=== PATIENT | female | born 1945 | race Caucasian/White ===

== ENCOUNTER → 2018-12-25 | Outpatient (CLI) | payer OTHER ==
[~2018-12-25] MED LIST: ACET325; Alendronate Sod10 MG PO; CARV3.125 PO; HYDACE5 PO; IBUP200; IBUP800 PO; LISI5 PO; OXYACE5T PO
== END | disposition home or self-care (01) ==
LOC: LAB 12:32 → LAB SHORT 12:32
DX: D22.62 Melanocytic nevi of left upper limb, including shoulder (principal)
CPT/HCPCS: 88305

== ENCOUNTER → 2019-01-06 | Outpatient (CLI) | payer OTHER | END | disposition home or self-care (01) | LOC: LAB SHORT 14:11 → PLD 14:11 | DX: D22.62 Melanocytic nevi of left upper limb, including shoulder (principal) | CPT/HCPCS: 88305 ==

== ENCOUNTER → 2021-07-28 | Outpatient (CLI) | payer OTHER | LOC: LAB SHORT 10:40 | DX: R82.998 Other abnormal findings in urine (principal) | CPT/HCPCS: 87086 ==

== ENCOUNTER → 2021-08-15 | Outpatient (CLI) | payer OTHER | END | disposition home or self-care (01) | LOC: LAB SHORT 15:08 → PLD 15:08 | DX: L57.0 Actinic keratosis (principal) | CPT/HCPCS: 88305 ==

== ENCOUNTER → 2021-10-24 | Outpatient (CLI) | payer OTHER | END | disposition home or self-care (01) | LOC: LAB 11:15 → LAB SHORT 11:15 | DX: R30.0 Dysuria (principal) | CPT/HCPCS: 87077; 87086; 87186 ==

== ENCOUNTER → 2022-05-17 | Outpatient (CLI) | payer OTHER | END | disposition home or self-care (01) | LOC: LAB SHORT 08:30 → LAB 08:30 | DX: R30.9 Painful micturition, unspecified (principal) | CPT/HCPCS: 87086 ==

== ENCOUNTER 2022-06-27 21:48 | Emergency (ER) | payer OTHER ==
[~2022-06-27] VITALS: Ht 172.7 cm; Wt 65.8 kg
[2022-06-27 22:14] LABS: BASOPHILS ABSOLUTE AUTO 0.01 K/mm3 (0.00-0.23); BASOPHILS PERCENT AUTO 0 % (0-2); EOSINOPHILS ABSOLUTE AUTO 0.05 K/mm3 (0.00-0.68); EOSINOPHILS PERCENT AUTO 1 % (0-6); Hematocrit 37.9 % (33.0-51.0); Hemoglobin 13.2 g/dL (11.5-16.0); IMMATURE GRAN ABSOLUTE AUTO 0.01 K/mm3 (0.00-0.10); IMMATURE GRAN PERCENT AUTO 0 % (0-1); LYMPHOCYTES ABSOLUTE AUTO 1.54 K/mm3 (0.84-5.20); LYMPHOCYTES PERCENT AUTO 26 % (21-46); MONOCYTES ABSOLUTE AUTO 0.58 K/mm3 (0.16-1.47); MONOCYTES PERCENT AUTO 10 % (4-13); Mean Corpuscular HGB 33.1 pg (26.0-34.0); Mean Corpuscular HGB Conc 34.8 g/dL (31.5-36.5); Mean Corpuscular Volume 95 fL (80-100); Mean Platelet Volume 10.1 fL (9.1-12.4); NEUTROPHILS ABSOLUTE AUTO 3.64 K/mm3 (1.96-9.15); NEUTROPHILS PERCENT AUTO 62 % (41-73); Platelet Count 284 K/mm3 (150-400); RDW Coefficient Variation 12.7 % (11.7-14.2); RDW Standard Deviation 44.2 fL (35.1-46.3); Red Blood Cell Count 3.99 M/mm3 (3.80-5.20); White Blood Cell Count 5.83 K/mm3 (4.00-11.30)
[2022-06-27 22:34] LABS: Albumin, Blood 3.7 g/dL (3.4-5.0); Albumin/Globulin Ratio 1.1 (0.8-1.8); Bilirubin, Total 0.3 mg/dL (0.1-1.0); Bun/Creatinine Ratio 28.6 (12.0-20.0); Calcium, Blood 9.1 mg/dL (8.5-10.1); Creatinine, Blood 0.77 mg/dL (0.40-1.00); Globulin, Blood 3.4 g/dL (2.2-4.0); Potassium, Blood 3.9 mmol/L (3.5-5.5); Total Protein, Blood 7.1 g/dL (6.4-8.2)
[2022-06-28] MEDS ORDERED: PRAV20 PO (01:42)
== END 2022-06-28 05:25 | disposition home or self-care (01) ==
LOC: ER 21:48
PROVIDERS: Emergency Medicine
DX: M79.602 Pain in left arm (principal); M25.511 Pain in right shoulder; Z79.899 Other long term (current) drug therapy; I10 Essential (primary) hypertension
CPT/HCPCS: 36415; 71046; 73562-RT; 80053; 84484; 85025; 96374; 99284-25; A9270; J1885

== ENCOUNTER → 2024-05-18 | Outpatient (CLI) | payer OTHER ==
[~2024-05-18] MED LIST changes: +PRAV20 PO
== END ==
LOC: LAB SHORT 17:16 → LAB 17:16
DX: N39.0 Urinary tract infection, site not specified (principal)
CPT/HCPCS: 87086

== ENCOUNTER → 2024-07-15 | Outpatient (CLI) | payer OTHER | END | disposition home or self-care (01) | LOC: LAB 10:51 → LAB SHORT 10:51 | DX: N39.0 Urinary tract infection, site not specified (principal); R31.9 Hematuria, unspecified | CPT/HCPCS: 87086 ==

== ENCOUNTER 2024-08-04 08:26 | Day surgery (SDC) | payer OTHER ==
[~2024-08-04] VITALS: Ht 170.2 cm; Wt 64.8 kg
[~2024-08-04 08:26] MED LIST changes: +Balanced Salt Epinephrine Irrigation Solution 500 mL IR SCH; +Diazepam 5 MG Tab PO PRN; +Diazepam 5 MG Tab PO SCH; +Lidocaine HCl/Pf 1% 5 ML VIAL XX SCH; +Moxifloxacin HCL 0.5 MG/0.1 ML 0.4MLSYR RIGHTEYE SCH; +Ondansetron 4 MG SoluTab MM PRN; +PHENYLEPHRINE\\TROPICAMIDE\\TETRACAINE OPHTHALMIC DILATING SOLN RIGHTEYE PRN; +Povidone-Iodine 450 DROP/30 ML Solution ONE; +Povidone-Iodine 450 DROP/30 ML Solution RIGHTEYE SCH; +Tetracaine HCl/Pf 0.5% Opth Soln 4 ml ONE
[2024-08-04] MEDS ORDERED: Diazepam 10 MG Tab ONE (08:52)
[2024-08-04] MEDS ORDERED: XARELTO20 M1 (09:06)
[2024-08-04] MEDS ORDERED: PROLIA60 MG/1 ML (09:07)
--- NOTE | 2024-08-04 09:19 | NUR ---
08/04/24 0919 Syed Chavez VALIUM 10 MG PO ADMINISTERED AT 0902. PT REPORTS ANXIETY LEVEL OF 4-5/10 PRE ADMINISTRATION OF VALIUM. TETRACAINE ADMINISTERED AT 0907, PLEDGET PLACED AT 0909.
[2024-08-04] MEDS ORDERED: Diazepam 2 MG Tab ONE (09:39)
--- NOTE | 2024-08-04 09:51 | NUR ---
08/04/24 0951 Yaneth Painter VITALS AT 0949 BP: 148/61 P: 56 O2: 96 10 LITERS OF BLOW BY OXYGEN.
[2024-08-04 10:06] VITALS: BP 129/62
== END 2024-08-04 10:17 | disposition home or self-care (01) ==
LOC: ORSCSDS 08:26
PROVIDERS: Student in an Organized Health Care Education/Training Program
PROC: 08RJ3JZ Replacement of Right Lens with Synthetic Substitute, Percutaneous Approach (ICD-10-PCS; principal; 2024-08-04 10:00)
DX: H25.813 Combined forms of age-related cataract, bilateral (principal); H18.593 Other hereditary corneal dystrophies, bilateral; I48.91 Unspecified atrial fibrillation; I10 Essential (primary) hypertension; Z79.01 Long term (current) use of anticoagulants; Z79.899 Other long term (current) drug therapy
CPT/HCPCS: A9270; V2632

== ENCOUNTER 2024-08-19 12:31 | Day surgery (SDC) | payer OTHER ==
[~2024-08-19] VITALS: Ht 170.2 cm; Wt 65.0 kg
[~2024-08-19 12:31] MED LIST changes: +Diazepam 10 MG Tab ONE; +Diazepam 2 MG Tab PO PRN; +Moxifloxacin HCL 0.5 MG/0.1 ML 0.4MLSYR LEFTEYE SCH; -Moxifloxacin HCL 0.5 MG/0.1 ML 0.4MLSYR RIGHTEYE SCH; +PHENYLEPHRINE\\TROPICAMIDE\\TETRACAINE OPHTHALMIC DILATING SOLN LEFTEYE PRN; -PHENYLEPHRINE\\TROPICAMIDE\\TETRACAINE OPHTHALMIC DILATING SOLN RIGHTEYE PRN; +PROLIA60 MG/1 ML; +Povidone-Iodine 450 DROP/30 ML Solution LEFTEYE SCH; -Povidone-Iodine 450 DROP/30 ML Solution RIGHTEYE SCH; +XARELTO20 M1; +diazePAM 5 MG,diazePAM 2 MG PO SCH
--- NOTE | 2024-08-19 12:50 | NUR ---
08/19/24 1250 Gustafson, Karen TETRACAINE IN AT 1242 PLEDGETT IN AT 1243 CALL LIGHT IN PT'S HAND. PT REPORTED ANXIETY AT 4/10 IMMEDIATELY PRIOR TO ADMINISTRATION OF VALIUM 10MG PO @ 1241. CONTINUOUS SPO2 AND HR MONITORING IN PLACE.
--- NOTE | 2024-08-19 13:09 | NUR ---
08/19/24 1309 Melisa Montes De Oca BP-137/65 P-50 SP02-96% 10L BLOW BY O2
[2024-08-19 13:27] VITALS: BP 120/71
== END 2024-08-19 13:39 | disposition home or self-care (01) ==
LOC: ORSCSDS 12:31
PROVIDERS: Student in an Organized Health Care Education/Training Program
PROC: 08RK3JZ Replacement of Left Lens with Synthetic Substitute, Percutaneous Approach (ICD-10-PCS; principal; 2024-08-19 14:00)
DX: H25.812 Combined forms of age-related cataract, left eye (principal); Z96.1 Presence of intraocular lens; H43.813 Vitreous degeneration, bilateral; H18.523 Epithelial (juvenile) corneal dystrophy, bilateral; I48.91 Unspecified atrial fibrillation; I10 Essential (primary) hypertension; Z79.01 Long term (current) use of anticoagulants; Z79.899 Other long term (current) drug therapy
CPT/HCPCS: A9270; V2632